=== PATIENT | male | born 1990 | race African-American/Black ===

== ENCOUNTER 2020-05-05 03:16 | Emergency (ER) | payer MEDICAID ==
[~2020-05-05] VITALS: Ht 188 cm; Wt 99.8 kg
[2020-05-05 03:28] VITALS: BP 168/97
--- NOTE | 2020-05-05 03:28 | NUR ---
PT TAKEN TO BED 4
--- NOTE | 2020-05-05 03:33 | NUR ---
Dr. Ramirez examining patient.
--- NOTE | 2020-05-05 03:49 | NUR ---
PT TAKEN TO X-RAY VIA SUPRIYA
--- NOTE | 2020-05-05 03:50 | NUR ---
PT RETURN FROM XRAY
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
[2020-05-05] MEDS ORDERED: KETOROLAC 60 MG/2 ML VIAL IM ONE (04:20)
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
[2020-05-05 04:54] VITALS: BP 168/97
--- NOTE | 2020-05-05 04:56 | NUR ---
Patient discharged with v/s stable. Written and verbal after care instructions given and explained. Patient alert, oriented and verbalized understanding of instructions. Ambulatory WITH CRUTCHES to home. All questions addressed prior to discharge. ID band removed. Patient advised to follow up with PMD. Rx of NAPROSYN given. Patient educated on indication of medication including possible reaction and side effects. Opportunity to ask questions provided and answered.
== END 2020-05-05 04:56 | disposition home or self-care (01) ==
LOC: MED 03:16
DX: S93.402A Sprain of unspecified ligament of left ankle, initial encounter (principal); R03.0 Elevated blood-pressure reading, without diagnosis of hypertension; W22.8XXA Striking against or struck by other objects, initial encounter; Y93.89 Activity, other specified; Y92.89 Other specified places as the place of occurrence of the external cause; Y99.8 Other external cause status
CPT/HCPCS: 73610; 96372; 99283; J1885

== ENCOUNTER 2020-06-06 11:06 | Emergency (ER) | payer MEDICAID ==
[~2020-06-06] VITALS: Ht 190.5 cm; Wt 103.4 kg
[2020-06-06 11:13] VITALS: BP 155/99
--- NOTE | 2020-06-06 11:17 | NUR ---
PATIENT AMBULATED WITH STEADY GAIT TO BED 6.
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
[2020-06-06] MEDS ORDERED: KETOROLAC 60 MG/2 ML VIAL IM ONE (11:30)
--- NOTE | 2020-06-06 11:33 | NUR ---
XRAY IS AT BEDSIDE.
[2020-06-06] MEDS ORDERED: BACITRACIN OINT 500 UNITS/GM PKT TP ONE (12:15)
[2020-06-06 12:51] VITALS: BP 132/87
--- NOTE | 2020-06-06 12:51 | NUR ---
Patient discharged with v/s stable. Written and verbal after care instructions given and explained. Patient alert, oriented and verbalized understanding of instructions. Ambulatory with steady gait. All questions addressed prior to discharge. ID band removed. Patient advised to follow up with PMD. Rx of Bacitracin, Ibuprofen, and Flexeril given. Patient educated on indication of medication including possible reaction and side effects. Opportunity to ask questions provided and answered.
== END 2020-06-06 12:51 | disposition home or self-care (01) ==
LOC: MED 11:06
DX: S46.811A Strain of other muscles, fascia and tendons at shoulder and upper arm level, right arm, initial encounter (principal); S86.812A Strain of other muscle(s) and tendon(s) at lower leg level, left leg, initial encounter; S70.211A Abrasion, right hip, initial encounter; X58.XXXA Exposure to other specified factors, initial encounter; Y93.39 Activity, other involving climbing, rappelling and jumping off; Y92.89 Other specified places as the place of occurrence of the external cause; Y99.8 Other external cause status
CPT/HCPCS: 73080; 73562; 90471; 90715; 96372; 99284; J1885; Q0092; 96374

== ENCOUNTER 2020-11-29 03:45 | Emergency (ER) | payer MEDICAID ==
[~2020-11-29] VITALS: Ht 188 cm; Wt 90.7 kg
[2020-11-29 03:49] VITALS: BP 161/111
--- NOTE | 2020-11-29 04:02 | NUR ---
PT COMING IN WITH C/O 10/10 PAIN TO RIGHT MIDDLE FINGER. DENIES ANY INJURY TO FINGER. MILD SWELLING NOTED TO R MIDDLE FINGER. SKIN INTACT, PT UNABLE TO MOVE FINGER DUE TO PAIN. BED IN LOWEST POSITION AND SIDERAIL UP X 1. NKA NO HX
[2020-11-29 04:13] VITALS: BP 161/111
--- NOTE | 2020-11-29 04:13 | NUR ---
Patient discharged with v/s stable. Written and verbal after care instructions given and explained. Patient alert, oriented and verbalized understanding of instructions. Ambulatory with steady gait. All questions addressed prior to discharge. ID band removed. Patient advised to follow up with PMD. Rx of BACTRIM DS AND KEFLEX given. Patient educated on indication of medication including possible reaction and side effects. Opportunity to ask questions provided and answered.
== END 2020-11-29 04:13 | disposition home or self-care (01) ==
LOC: MED 03:45
DX: L03.011 Cellulitis of right finger (principal); F17.210 Nicotine dependence, cigarettes, uncomplicated; Z71.6 Tobacco abuse counseling
CPT/HCPCS: 99283

== ENCOUNTER 2020-12-24 04:25 | Emergency (ER) | payer MEDICAID ==
[~2020-12-24] VITALS: Ht 188 cm; Wt 112.6 kg
[2020-12-24 04:35] VITALS: BP 172/76
--- NOTE | 2020-12-24 04:49 | NUR ---
PT AMBULATED TO BED 8
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
[2020-12-24] MEDS ORDERED: KETOROLAC 60 MG/2 ML VIAL IM ONE (05:00)
--- NOTE | 2020-12-24 05:02 | NUR ---
Dr. Estrella examining patient.
[2020-12-24] MEDS ORDERED: LIDOCAINE MPF 1% 10 MG/ML VIAL INJ ONE (05:10)
[2020-12-24] MEDS ORDERED: BACITRACIN OINT 500 UNITS/GM PKT TP ONE (05:40)
--- NOTE | 2020-12-24 05:50 | NUR ---
EMT AT BEDSIDE FOR WOUND CARE.
[2020-12-24 06:07] VITALS: BP 158/106
--- NOTE | 2020-12-24 06:07 | NUR ---
Patient discharged with v/s stable. Written and verbal after care instructions given and explained. Patient alert, oriented and verbalized understanding of instructions. Ambulatory with steady gait. All questions addressed prior to discharge. ID band removed. Patient advised to follow up with PMD. Rx of KEFLEX AND BACTRIM given. Patient educated on indication of medication including possible reaction and side effects. Opportunity to ask questions provided and answered. PT DENIES PAIN, PROVIDED WORK NOTE, AND IN STABLE CONDITION.
== END 2020-12-24 06:07 | disposition home or self-care (01) ==
LOC: MED 04:25
DX: L02.415 Cutaneous abscess of right lower limb (principal); L03.115 Cellulitis of right lower limb; F12.90 Cannabis use, unspecified, uncomplicated
CPT/HCPCS: 10060; 96372; 99283; J1885; J2001